=== PATIENT | female | born 1990 | race Caucasian/White ===

== ENCOUNTER 2016-11-25 15:15 | Emergency (ER) | payer OTHER ==
[~2016-11-25] VITALS: Wt 71.5 kg
[2016-11-25 17:31] LABS: ADD UMIC YES; URINE BILIRUBIN (Dip) NEGATIVE (NEGATIVE); URINE BLOOD (Dip) NEGATIVE (NEGATIVE); URINE COLOR LT. YELLOW (YELLOW); URINE GLUCOSE (Dip) NEGATIVE (NEGATIVE); URINE KETONES (Dip) TRACE (NEGATIVE); URINE LEUKOCYTE ESTERASE (Dip) 1+ (NEGATIVE); URINE NITRITE (Dip) NEGATIVE (NEGATIVE); URINE TOTAL PROTEIN (Dip) NEGATIVE (NEGATIVE); URINE UROBILINOGEN (Dip) 0.2 E.U./dL (0.1-1.0)
[2016-11-25 17:37] LABS: URINE RBCS 0-2 /HPF (0)
[2016-11-25 17:38] LABS: BACTERIA,URINE FEW
--- NOTE | 2016-11-25 17:44 | RADRPT ---
PROCEDURE: XR Chest. CLINICAL INDICATION: Chest pain. TECHNIQUE: Single frontal view. COMPARISON: None. FINDINGS: The lungs are clear. The heart size is normal. There is no pleural effusion. There is no pneumothorax. IMPRESSION: 1. Normal chest radiograph. RPTAT: QQ .Simón Evans MD, Date Time Electronically viewed and signed by .Simón Evans MD, on 11/25/2016 17:44 .R/
[2016-11-25 18:03] LABS: ADD SCAN DIFF NO
[2016-11-25 18:04] LABS: BASOPHILS % 0.6 % (0.0-2.0); EOSINOPHILS # 0.1 10^3/ul (0.0-0.5); EOSINOPHILS % 1.6 % (0.0-7.0); HEMATOCRIT 38.1 % (37.0-47.0); HEMOGLOBIN 12.8 g/dl (12.0-16.0); LYMPHOCYTES # 2.2 10^3/ul (0.8-2.9); LYMPHOCYTES % 30.7 % (15.0-51.0); MEAN CORPUSCULAR HEMOGLOBIN 28.3 pg (29.0-33.0); MEAN CORPUSCULAR HGB CONC 33.6 g/dl (32.0-37.0); MEAN CORPUSCULAR VOLUME 84.1 fl (82.0-101.0); MEAN PLATELET VOLUME 9.1 fl (7.4-10.4); MONOCYTE # 0.7 10^3/ul (0.3-0.9); MONOCYTES % 9.9 % (0.0-11.0); NEUTROPHILS % 56.9 % (39.0-77.0); PLATELET COUNT 308 10^3/UL (140-415); RED BLOOD COUNT 4.53 10^6/ul (4.20-5.40); RED CELL DISTRIBUTION WIDTH 12.9 % (11.5-14.5); WHITE BLOOD COUNT 7.1 10^3/ul (4.8-10.8)
[2016-11-25 18:15] LABS: CHLORIDE 103 mmol/L (97-110); SODIUM 142 mmol/L (135-144)
[2016-11-25 18:16] LABS: INR 0.98; POTASSIUM 3.6 mmol/L (3.5-5.1)
[2016-11-25 18:17] LABS: PARTIAL THROMBOPLASTIN TIME 31.1 Sec (25.0-35.0)
[2016-11-25 18:18] LABS: ANION GAP 17 (8-16); BLOOD UREA NITROGEN 11 mg/dl (7-20); CARBON DIOXIDE 26 mmol/L (21-31); CREATININE 0.64 mg/dl (0.44-1.00)
[2016-11-25 18:19] LABS: CALCIUM 9.1 mg/dl (8.4-10.2); GLUCOSE 80 mg/dl (70-220)
[2016-11-25 18:31] LABS: TROPONIN-I < 0.012 ng/ml (0.00-0.12)
--- NOTE | 2016-11-25 18:37 | ERD ---
ER Documentation Chief Complaint Date/Time DATE: 11/25/16 TIME: 18:34 Chief Complaint SYNCOPE THIS AM, AT 0900, NO TRAUMA. MILD HEADACHE NO NEURO DEF. HPI This is a 26-year-old female with no past medical conditions who presents to the emergency room for evaluation of a couple episodes which occurred this morning. This patient states that she was sitting in bed and she stood up to go take a shower. She states she started to feel dizzy and started to have mildly blurred vision. She did have a syncopal episode and workup on the floor. The patient denies any bleeding from her head, and states that she has felt normal since this occurred however she came to the emergency room for evaluation. She denies any chest pain, palpitations, shortness of breath at this time. Patient also denies any dizziness at this time ROS All systems reviewed and are negative except as per history of present illness. Medications Home Meds No Active Prescriptions or Reported Meds Allergies Allergies: Coded Allergies: No Known Allergy (Unverified , 11/25/16) Physical Exam Vitals Vital Signs Date Time Temp Pulse Resp B/P Pulse Ox O2 Delivery O2 Flow Rate FiO2 11/25/16 15:38 98.8 78 20 131/55 98 Physical Exam INITIAL VITAL SIGNS: Reviewed by me GENERAL: The patient is well developed and appropriate for usual state of health in no apparent distress HEENT: Pupils equal, round, and reactive to light. EOMI. There is no scleral icterus. NECK: C-spine is soft and supple, there is no meningismus. There is no cervical lymphadenopathy. LUNGS: Clear to auscultation bilaterally. There are no rales, wheezes or rhonchi. HEART: Regular rate and rhythm, no murmurs, clicks, rubs or gallops. ABDOMEN: Soft, non-tender, non-distended. There are bowel sounds in all four quadrants. No rebound or guarding. EXTREMITIES: There is no peripheral cyanosis or edema. No focal swelling or erythema. NEUROLOGICAL: The patient moves all four extremities with 5/5 strength. Cranial nerves II - XII are intact. Normal gait. Alert and oriented SKIN: There is no apparent rash or petechiae. HEME/LYMPHATIC: There is no evidence of excessive bruising or lymphedema. PSYCHIATRIC: The patient does not appear anxious or depressed. Result Diagram: 11/25/16 1730 11/25/16 1730 Results 24 hrs Laboratory Tests Test 11/25/16 17:15 11/25/16 17:30 Urine Bacteria FEW Urine Bilirubin NEGATIVE Urine Clarity SLIGHTLY CLOUDY Urine Color LT. YELLOW Urine Epithelial Cells MODERATE Urine Glucose NEGATIVE% Urine Hemoglobin NEGATIVE Urine Ketones TRACE Urine Leukocyte Esterase 1+ Urine Microscopic RBC 0-2/HPF Urine Microscopic WBC 5-10/HPF Urine Nitrite NEGATIVE Urine Specific [place] 1.015 Urine Total Protein NEGATIVE Urine Urobilinogen 0.2 E.U./dL Urine pH 6.0 Activated Partial Thromboplast Time 31.1Sec Anion Gap 17 Basophils # 0.010^3/ul Basophils % 0.6% Blood Urea Nitrogen 11mg/dl Calcium Level 9.1mg/dl Carbon Dioxide Level 26mmol/L Chloride Level 103mmol/L Creatinine 0.64mg/dl Eosinophils # 0.110^3/ul Eosinophils % 1.6% Glucose Level 80mg/dl Hematocrit 38.1% Hemoglobin 12.8g/dl INR International Normalized Ratio 0.98 Lymphocytes # 2.210^3/ul Lymphocytes % 30.7% Mean Corpuscular Hemoglobin 28.3pg Mean Corpuscular Hemoglobin Concent 33.6g/dl Mean Corpuscular Volume 84.1fl Mean Platelet Volume 9.1fl Monocytes # 0.710^3/ul Monocytes % 9.9% Neutrophils # 4.010^3/ul Neutrophils % 56.9% Nucleated Red Blood Cells # 0.010^3/ul Nucleated Red Blood Cells % 0.0/100WBC Platelet Count 25858^3/UL Potassium Level 3.6mmol/L Prothrombin Time 13.0Sec Prothrombin Time Ratio 1.0 Red Blood Count 4.5310^6/ul Red Cell Distribution Width 12.9% Sodium Level 142mmol/L Troponin I < 0.012ng/ml White Blood Count 7.110^3/ul Procedures/MDM EKG: Rate/Rhythm: [Normal Sinus Rhythm] QRS, ST, T-waves: [No changes consistent w/ acute ischemia] Impression: [No evidence of ischemia or arrhythmia] Chest X-ray 1V Interpreted by me: Soft Tissue: No acute abnormalities Bones: No acute abnormalities Mediastinum/Cardiac Silhouette/Lungs: [No acute abnormalities] This 26-year-old female presents to the ER for evaluation of a syncopal episode which occurred this morning. When I evaluated this patient she was alert and oriented to person place and time, she was hemodynamically stable. She had no complaints of any chest pain or dizziness at that time. I did obtain lab work including an EKG. Lab work is within normal limits. EKG is nonischemic. Chest x-ray is also within normal limits. Her urinalysis does reveal trace ketones in a presence of white blood cells. This patient likely had a vasovagal syncope secondary to mild dehydration. This patient has no complaints of any urinary symptoms. Patient will be discharged with instructions to stay more hydrated as I do feel her symptoms are secondary to mild dehydration. She is hemodynamically stable at this time and she is okay with her plan of care. Departure Diagnosis: Primary Impression: Syncope Additional Impression: Mild dehydration Condition: Stable YANY CELAYA DO Nov 25, 2016 18:37
[2016-11-25 18:50] VITALS: BP 104/55; PULSE 74; RESP 16
== END 2016-11-25 18:50 | disposition home or self-care (01) ==
LOC: E/R 15:15
DX: R55 Syncope and collapse (principal); E86.0 Dehydration
CPT/HCPCS: 36415; 71010; 80048; 81001; 84484; 85025; 85610; 85730; Z7502; 81003; 93005

== ENCOUNTER 2017-02-25 10:38 | Emergency (ER) | payer OTHER ==
[~2017-02-25] VITALS: Ht 167.6 cm; Wt 76.0 kg
[2017-02-25 10:43] VITALS: Ht 167.6 cm; Wt 76.0 kg
[2017-02-25] MEDS ORDERED: ACET500C5 PO (11:33)
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
--- NOTE | 2017-02-25 12:45 | RADRPT ---
PROCEDURE: XR Shoulder. CLINICAL INDICATION: Left shoulder pain TECHNIQUE: Three views of the left shoulder are available for review. COMPARISON: None available FINDINGS: No acute fracture or dislocation is seen. The glenohumeral and acromioclavicular joints are grossly unremarkable. The visualized portions of the left clavicle and upper left rib cage are equally unr emarkable. IMPRESSION: 1. No acute fracture or dislocation is seen. RPTAT: HH .Simona Oglesby MD, Date Time Electronically viewed and signed by .Simona Oglesby MD, on 02/25/2017 12:44 .N/
== END 2017-02-25 13:52 | disposition home or self-care (01) ==
LOC: FTE 10:38
DX: S49.92XA Unspecified injury of left shoulder and upper arm, initial encounter (principal); V89.2XXA Person injured in unspecified motor-vehicle accident, traffic, initial encounter
CPT/HCPCS: 73030